=== PATIENT | male | born 1970 | race Caucasian/White ===

== ENCOUNTER 2019-01-29 05:50 | Emergency (ER) | payer MEDICAID ==
[2019-01-29] MEDS: IPRATROPIUM/ALBUTEROL 3 ML DEYVIAL IH ONE (06:03)
--- NOTE | 2019-01-29 06:11 | EDPHY ---
H & P Stated Complaint: SOB 2 WEEKS, DENIES COUGH Time Seen by Provider: 01/29/19 05:57 HPI/ROS: Chief Complaint: Shortness of breath HPI: 48-year-old male with a history of asthma presenting complaining of 2 weeks of worsening shortness of breath. He has not used any asthma medication for the last year. Over the last couple weeks she has been using his nebulizer at home with no affect. He does state the nebulizer solution was dated 2016. Has a slight dry cough. No chest pain. No nausea or vomiting. No leg pain or swelling. No fevers or chills. ROS: 10 systems were reviewed and were negative except those elements noted in the HPI. PMH: Asthma Social History: No smoking, no alcohol, no recreational drug use Family History: non-contributory Physical Exam: Gen: Awake, Alert, No Distress HEENT: Nose: no rhinorrhea Eyes: PERRLA, EOMI Mouth: Moist mucosa Neck: Supple, no JVD Chest: nontender, moderate diffuse expiratory wheezing, no focal rales or rhonchi Heart: S1, S2 normal, no murmur Abd: Soft, non-tender, no guarding Back: no CVA tenderness, no midline tenderness Ext: no edema, non-tender Skin: no rash Neuro: CN II-XII intact, Sensation grossly intact, Strength 5/5 in bilateral upper and lower extremities - Personal History Current Tetanus/Diphtheria Vaccine: Yes Current Tetanus Diphtheria and Acellular Pertussis (TDAP): Yes - Medical/Surgical History Hx Asthma: Yes Hx Chronic Respiratory Disease: No Hx Diabetes: No Hx Cardiac Disease: No Hx Renal Disease: No Hx Cirrhosis: No Hx Alcoholism: No Hx HIV/AIDS: No Hx Splenectomy or Spleen Trauma: No Other PMH: medical- asthma, [place] homeless and "slept out 2 nights ago " - Social History Smoking Status: Never smoked Constitutional: Initial Vital Signs Temperature (C) 36.6 C 01/29/19 05:53 Heart Rate 75 01/29/19 05:53 Respiratory Rate 18 01/29/19 05:53 O2 Sat (%) 93 01/29/19 05:53 O2 Delivery Mode Room Air Allergies/Adverse Reactions: No Known Allergies Allergy (Verified 01/29/19 05:54) Home Medications: Medication Instructions Recorded Albuterol [Ventolin Hfa] 2 puffs IH Q4PRN PRN 06/22/11 predniSONE 60 mg PO DAILY #12 tab 01/29/19 Medical Decision Making - Data Points Medications Given: Discontinued Medications Albuterol/Ipratropium (Duoneb) 3 ml IH EDNOW ONE Stop: 01/29/19 06:01 Last Admin: 01/29/19 06:03 Dose: 3 ml Departure - Departure Disposition: Home, Routine, Self-Care Clinical Impression: Exacerbation of asthma Condition: Good Instructions: Albuterol (By breathing), Asthma (ED) Additional Instructions: You may use the albuterol inhaler, 1-2 puffs every 4-6 hours as needed for cough or wheeze. Always use a spacer device with your inhaler. Please take her full course of prednisone. Follow up with primary care physician in 2-3 days for further evaluation. Referrals: Margarita Simms PA [Primary Care Provider] - As per Instructions Prescriptions: predniSONE 60 mg PO DAILY #12 tab
[2019-01-29] MEDS: predniSONE 20 MG TAB PO ONE (06:17)
[2019-01-29] MEDS: ALBUTEROL INH PREPACK MDI TAKEHOME ONE (06:38)
[2019-01-29 06:42] VITALS: BP 137/78
== END 2019-01-29 06:42 | disposition home or self-care (01) ==
DX: J45.901 Unspecified asthma with (acute) exacerbation (principal); Z59.0 Homelessness
CPT/HCPCS: J7512